=== PATIENT | female | born 1965 | race Caucasian/White ===

== ENCOUNTER → 2022-03-13 | Outpatient (CLI) | payer MEDICAID ==
[2022-03-13 16:28] LABS: C REACTIVE PROTEIN QUANTITATIV 7.98 MG/DL (0.00-0.30); URIC ACID 4.1 MG/DL (2.6-6.0)
== END ==
LOC: M PLALAB 12:13
PROVIDERS: ATTEND Physician Assistant
DX: M06.9 Rheumatoid arthritis, unspecified (principal)

== ENCOUNTER → 2022-05-12 | Outpatient (CLI) | payer MEDICAID, OTHER ==
[~2022-05-12] MED LIST: AMLO1TAB24; FLUO40CA; FURO40TA2; LORA1TAB4; PRED20TA; PROC10TA5; TRAM50TA2
== END ==
LOC: M PLARAD 13:50
PROVIDERS: ATTEND Internal Medicine Hematology & Oncology
DX: C77.8 Secondary and unspecified malignant neoplasm of lymph nodes of multiple regions (principal)

== ENCOUNTER → 2022-06-18 | Outpatient (CLI) | payer OTHER | LOC: M ONCR 13:35 | PROVIDERS: ATTEND Radiology Radiation Oncology | DX: C43.59 Malignant melanoma of other part of trunk (principal); C79.51 Secondary malignant neoplasm of bone; E78.5 Hyperlipidemia, unspecified; I10 Essential (primary) hypertension; J44.9 Chronic obstructive pulmonary disease, unspecified; K21.9 Gastro-esophageal reflux disease without esophagitis; M06.9 Rheumatoid arthritis, unspecified; Z79.52 Long term (current) use of systemic steroids; Z79.891 Long term (current) use of opiate analgesic; Z79.899 Other long term (current) drug therapy; Z88.8 Allergy status to other drugs, medicaments and biological substances ==

== ENCOUNTER 2022-07-01 14:06 | Outpatient (RCR) | payer OTHER ==
[2022-07-01] MEDS ORDERED: METR0.7526 TOP (14:48)
== END 2022-07-08 ==
LOC: M ONCR 14:06
PROVIDERS: ATTEND General Practice
DX: C43.9 Malignant melanoma of skin, unspecified (principal)

== ENCOUNTER 2022-08-31 19:08 | Inpatient (IN) | payer MEDICAID, OTHER ==
[~2022-08-31] VITALS: Ht 157.5 cm; Wt 80.0 kg
[~2022-08-31 19:08] MED LIST changes: +METR0.7526 TOP
[2022-08-31] MEDS ORDERED: NS 1,000 ML IV ONE (19:40)
[2022-08-31 20:05] LABS: BASO % 0.4 % (0.0-1.0); EOS % 0.4 % (0.0-3.0); HEMATOCRIT 32.8 % (36.0-47.0); HEMOGLOBIN 10.3 g/dl (12.0-15.5); LYMPH # 0.9 10^3/uL (1.5-5.0); LYMPH % 10.3 % (24.0-44.0); MEAN CORPUSCULAR HEMOGLOBIN 28.2 pg (27.0-33.0); MEAN CORPUSCULAR HGB CONC 31.4 g/dl (32.0-36.5); MEAN CORPUSCULAR VOLUME 89.9 fl (80.0-96.0); MONO # 0.6 10^3/uL (0.0-0.8); MONO % 6.5 % (2.0-8.0); NEUTROPHILS # 6.8 10^3/uL (1.5-8.5); NEUTROPHILS % 81.1 % (36.0-66.0); PLATELET COUNT, AUTOMATED 242 10^3/uL (150-450); RED BLOOD COUNT 3.65 10^6/uL (4.00-5.40); WHITE BLOOD COUNT 8.4 10^3/uL (4.0-10.0)
[2022-08-31] MEDS ORDERED: ISOVUE-370 76% 100ML VIAL As Ordered ONE (20:16)
[2022-08-31 20:26] LABS: LIPASE 34 U/L (12-53)
[2022-08-31 20:27] LABS: ALBUMIN 1.8 G/DL (3.2-5.2); ALKALINE PHOSPHATASE 870 U/L (46-116); ALT/SGPT 29 U/L (7.0-40); AST/SGOT 85 U/L (<34); BILIRUBIN,DIRECT 0.5 MG/DL (<0.4); BILIRUBIN,TOTAL 0.8 MG/DL (0.3-1.2); TOTAL PROTEIN 4.7 G/DL (5.7-8.2)
[2022-08-31] MEDS ORDERED: PIPERACILLIN/TAZOBACTAM SOD 3.375 GM in D5W MINI-BAG PLUS 50 ML IV ONE (20:35)
[2022-08-31 20:41] LABS: RSV AMPLIFICATION NEGATIVE (NEGATIVE)
[2022-08-31 20:47] LABS: CK-MB VALUE MASS < 1.0 NG/ML (<3.6)
[2022-08-31 20:49] LABS: CPK CREATINE PHOSPHOKINASE < 15 U/L (34-145)
[2022-08-31] MEDS ORDERED: MORPHINE 2 MG/ML 1ML VIAL IV ONE (21:05)
[2022-08-31] MEDS ORDERED: PROC10TA5 PO (22:15)
[2022-08-31] MEDS ORDERED: HOME MED LIST COMPLETE! XX SCH (22:20)
[2022-08-31] MEDS ORDERED: NS 500 ML IV ONE (23:45)
[2022-08-31] MEDS ORDERED: NORCO, ANEXSIA 5/325MG TABLET (HYDROcodone/ACETAMINOPHEN) PO PRN (23:45)
[2022-08-31] MEDS ORDERED: ACETAMINOPHEN TAB 650MG DOSE (2X325MG) PO PRN (23:45)
[2022-09-01] MEDS ORDERED: ALBUTEROL SULFATE 2.5MG/0.5ML INH NEB SOLN NEB PRN (01:25)
[2022-09-01] MEDS ORDERED: amLODIPine 5 MG TAB PO ONE (02:00)
[2022-09-01 05:15] VITALS: BP 136/89
[2022-09-01] MEDS ORDERED: HEPARIN SOD (PORCINE) 5000UNITS/ML 1ML VIAL/SYRINGE SC SCH (06:00)
[2022-09-01 06:49] LABS: ALBUMIN 1.8 G/DL (3.2-5.2); ALKALINE PHOSPHATASE 845 U/L (46-116); ALT/SGPT 27 U/L (7.0-40); AST/SGOT 70 U/L (<34); BLOOD UREA NITROGEN 15 MG/DL (9-23); CALCIUM LEVEL 7.5 MG/DL (8.5-10.1); CARBON DIOXIDE LEVEL 22 MMOL/L (20-31); CHLORIDE LEVEL 103 MMOL/L (98-107); CREATININE FOR GFR 0.39 MG/DL (0.55-1.30); GLOMERULAR FILTRATION RATE > 60.0 (>51); GLUCOSE, FASTING 103 MG/DL (60-100); POTASSIUM SERUM 3.6 MMOL/L (3.5-5.1); SODIUM LEVEL 133 MMOL/L (136-145); TOTAL PROTEIN 4.7 G/DL (5.7-8.2)
[2022-09-01] MEDS ORDERED: cefTRIAXone SOD 1 GM in D5W MINI-BAG PLUS 50 ML IV SCH (08:00)
[2022-09-01] MEDS: NS 1,000 ML IV SCH ×2 (08:42→17:56)
[2022-09-01] MEDS ORDERED: FLUBLOK(EGG FREE)(QUAD)INFLUENZA VACC 0.5ML SYRINGE 18YRS & OLDER IM.IMMUN ONE (09:00)
[2022-09-01] MEDS: amLODIPine 5 MG TAB PO SCH (13:02)
[2022-09-01] MEDS: ENOXAPARIN 40MG/0.4ML SYRINGE (J1650 PER 10MG) SC SCH (13:03)
[2022-09-01 14:00] VITALS: BP 126/92
[2022-09-01] MEDS ORDERED: VANCOMYCIN HCL 1,000 MG, VIAL MATE ADAPTER 1 EACH in NS 250 ML IV SCH (15:15)
[2022-09-01] MEDS ORDERED: VANCOMYCIN HCL 500 MG in D5W MINI-BAG PLUS 100 ML IV ONE ×2 (16:00→17:00)
[2022-09-01] MEDS: VANCOMYCIN HCL 1,000 MG, VIAL MATE ADAPTER 1 EACH in D5W 250 ML IV SCH (16:04)
[2022-09-01] MEDS ORDERED: VANCOMYCIN HCL 750 MG, VIAL MATE ADAPTER 1 EACH in D5W 250 ML IV ONE (17:00)
[2022-09-01] MEDS: PIPERACILLIN/TAZOBACTAM SOD 3.375 GM in D5W MINI-BAG PLUS 50 ML IV SCH (20:09)
[2022-09-01] MEDS ORDERED: NS 500 ML IV ONE (22:50)
[2022-09-02 00:26] VITALS: BP 128/91
[2022-09-02] MEDS: VANCOMYCIN HCL 1,000 MG, VIAL MATE ADAPTER 1 EACH in D5W 250 ML IV SCH ×2 (00:53→14:54)
[2022-09-02] MEDS: PIPERACILLIN/TAZOBACTAM SOD 3.375 GM in D5W MINI-BAG PLUS 50 ML IV SCH ×4 (02:42→20:14)
[2022-09-02 04:54] LABS: HEMATOCRIT 31.1 % (36.0-47.0); HEMOGLOBIN 9.7 g/dl (12.0-15.5); MEAN CORPUSCULAR HEMOGLOBIN 28.4 pg (27.0-33.0); MEAN CORPUSCULAR HGB CONC 31.2 g/dl (32.0-36.5); MEAN CORPUSCULAR VOLUME 91.2 fl (80.0-96.0); PLATELET COUNT, AUTOMATED 222 10^3/uL (150-450); RED BLOOD COUNT 3.41 10^6/uL (4.00-5.40); WHITE BLOOD COUNT 8.5 10^3/uL (4.0-10.0)
[2022-09-02] MEDS: NS 1,000 ML IV SCH ×2 (05:06→13:39)
[2022-09-02 05:18] LABS: BLOOD UREA NITROGEN 12 MG/DL (9-23); CALCIUM LEVEL 6.7 MG/DL (8.5-10.1); CARBON DIOXIDE LEVEL 22 MMOL/L (20-31); CHLORIDE LEVEL 104 MMOL/L (98-107); CREATININE FOR GFR 0.38 MG/DL (0.55-1.30); GLOMERULAR FILTRATION RATE > 60.0 (>51); GLUCOSE, FASTING 79 MG/DL (60-100); POTASSIUM SERUM 3.6 MMOL/L (3.5-5.1); SODIUM LEVEL 135 MMOL/L (136-145)
[2022-09-02 05:59] VITALS: BP 159/91
[2022-09-02] MEDS: amLODIPine 5 MG TAB PO SCH (09:27)
[2022-09-02] MEDS: ENOXAPARIN 40MG/0.4ML SYRINGE (J1650 PER 10MG) SC SCH (09:27)
[2022-09-02] MEDS ORDERED: VANCOMYCIN HCL 1,000 MG, VIAL MATE ADAPTER 1 EACH in D5W 250 ML IV SCH (13:00)
[2022-09-02 13:15] LABS: VANCOMYCIN LEVEL TROUGH 16.8 UG/ML (10.0-20.0)
[2022-09-02 14:00] VITALS: BP 140/89
[2022-09-02] MEDS: ONDANSETRON 4MG ORAL DISINTEGRATING TAB PO PRN (14:54)
[2022-09-02 15:22] LABS: C REACTIVE PROTEIN QUANTITATIV 12.9 MG/DL (<1.0)
[2022-09-02 22:28] VITALS: BP 137/90
[2022-09-03] MEDS: VANCOMYCIN HCL 1,000 MG, VIAL MATE ADAPTER 1 EACH in D5W 250 ML IV SCH (01:24)
[2022-09-03 06:57] VITALS: BP 133/85
[2022-09-03 07:22] LABS: BASO # 0.1 10^3/uL (0.0-0.2); BASO % 0.7 % (0.0-1.0); EOS # 0.1 10^3/uL (0.0-0.5); EOS % 0.8 % (0.0-3.0); HEMOGLOBIN 9.9 g/dl (12.0-15.5); LYMPH # 0.9 10^3/uL (1.5-5.0); LYMPH % 10.4 % (24.0-44.0); MEAN CORPUSCULAR HEMOGLOBIN 28.9 pg (27.0-33.0); MEAN CORPUSCULAR HGB CONC 31.9 g/dl (32.0-36.5); MEAN CORPUSCULAR VOLUME 90.6 fl (80.0-96.0); MONO # 0.7 10^3/uL (0.0-0.8); MONO % 8.5 % (2.0-8.0); NEUTROPHILS # 6.5 10^3/uL (1.5-8.5); NEUTROPHILS % 77.5 % (36.0-66.0); PLATELET COUNT, AUTOMATED 212 10^3/uL (150-450); RED BLOOD COUNT 3.42 10^6/uL (4.00-5.40); WHITE BLOOD COUNT 8.4 10^3/uL (4.0-10.0)
[2022-09-03 07:44] LABS: ALBUMIN 1.6 G/DL (3.2-5.2); ALKALINE PHOSPHATASE 979 U/L (46-116); ALT/SGPT 31 U/L (7.0-40); AST/SGOT 74 U/L (<34); BLOOD UREA NITROGEN 14 MG/DL (9-23); CALCIUM LEVEL 7.1 MG/DL (8.5-10.1); CARBON DIOXIDE LEVEL 21 MMOL/L (20-31); CHLORIDE LEVEL 102 MMOL/L (98-107); CREATININE FOR GFR 0.38 MG/DL (0.55-1.30); GLOMERULAR FILTRATION RATE > 60.0 (>51); GLUCOSE, FASTING 69 MG/DL (60-100); MAGNESIUM LEVEL 1.6 MG/DL (1.8-2.4); POTASSIUM SERUM 3.8 MMOL/L (3.5-5.1); SODIUM LEVEL 134 MMOL/L (136-145); TOTAL PROTEIN 4.5 G/DL (5.7-8.2)
[2022-09-03] MEDS ORDERED: MAGNESIUM OXIDE 400MG TAB (MAG-OX) PO ONE (07:50)
[2022-09-03] MEDS: ENOXAPARIN 40MG/0.4ML SYRINGE (J1650 PER 10MG) SC SCH (08:51)
[2022-09-03] MEDS: amLODIPine 5 MG TAB PO SCH (08:52)
[2022-09-03 14:00] VITALS: BP 139/95
[2022-09-03] MEDS: VANCOMYCIN HCL 750 MG, VIAL MATE ADAPTER 1 EACH in D5W 250 ML IV SCH (14:07)
[2022-09-03] MEDS: ONDANSETRON 4MG ORAL DISINTEGRATING TAB PO PRN ×2 (14:12→23:10)
[2022-09-03 22:12] VITALS: BP 120/79
[2022-09-04] MEDS: VANCOMYCIN HCL 750 MG, VIAL MATE ADAPTER 1 EACH in D5W 250 ML IV SCH (02:20)
[2022-09-04 05:59] VITALS: BP 117/77
[2022-09-04 06:21] LABS: BASO # 0.1 10^3/uL (0.0-0.2); BASO % 0.7 % (0.0-1.0); EOS # 0.1 10^3/uL (0.0-0.5); EOS % 0.8 % (0.0-3.0); HEMATOCRIT 32.3 % (36.0-47.0); HEMOGLOBIN 10.2 g/dl (12.0-15.5); LYMPH % 10.8 % (24.0-44.0); MEAN CORPUSCULAR HEMOGLOBIN 28.8 pg (27.0-33.0); MEAN CORPUSCULAR HGB CONC 31.6 g/dl (32.0-36.5); MEAN CORPUSCULAR VOLUME 91.2 fl (80.0-96.0); MONO # 0.8 10^3/uL (0.0-0.8); MONO % 8.4 % (2.0-8.0); NEUTROPHILS # 6.9 10^3/uL (1.5-8.5); NEUTROPHILS % 77.1 % (36.0-66.0); PLATELET COUNT, AUTOMATED 247 10^3/uL (150-450); RED BLOOD COUNT 3.54 10^6/uL (4.00-5.40); WHITE BLOOD COUNT 8.9 10^3/uL (4.0-10.0)
[2022-09-04 07:21] LABS: ALBUMIN 1.6 G/DL (3.2-5.2); ALKALINE PHOSPHATASE 1161 U/L (46-116); ALT/SGPT 40 U/L (7.0-40); AST/SGOT 93 U/L (<34); BLOOD UREA NITROGEN 16 MG/DL (9-23); CALCIUM LEVEL 7.9 MG/DL (8.5-10.1); CARBON DIOXIDE LEVEL 22 MMOL/L (20-31); CHLORIDE LEVEL 103 MMOL/L (98-107); CREATININE FOR GFR 0.42 MG/DL (0.55-1.30); GLOMERULAR FILTRATION RATE > 60.0 (>51); GLUCOSE, FASTING 93 MG/DL (60-100); MAGNESIUM LEVEL 1.9 MG/DL (1.8-2.4); POTASSIUM SERUM 4.2 MMOL/L (3.5-5.1); SODIUM LEVEL 134 MMOL/L (136-145); TOTAL PROTEIN 4.6 G/DL (5.7-8.2)
[2022-09-04] MEDS: amLODIPine 5 MG TAB PO SCH (08:30)
[2022-09-04] MEDS: ENOXAPARIN 40MG/0.4ML SYRINGE (J1650 PER 10MG) SC SCH (08:30)
[2022-09-04 08:40] LABS: HEPATITIS B SURFACE ANTIGEN NEGATIVE (NEGATIVE)
[2022-09-04 09:00] LABS: HEPATITIS B CORE ANTIBODY IGM NEGATIVE (NEGATIVE)
[2022-09-04 09:01] LABS: HEPATITIS C VIRUS ABY INDEX 0.1 INDEX (<0.8)
[2022-09-04] MEDS ORDERED: VANCOMYCIN HCL 750 MG, VIAL MATE ADAPTER 1 EACH in D5W 250 ML IV SCH ×2 (14:00→15:00)
[2022-09-04 14:16] VITALS: BP 143/86
[2022-09-04] MEDS: ONDANSETRON 4MG ORAL DISINTEGRATING TAB PO PRN (18:33)
[2022-09-04 20:05] VITALS: BP 141/87
[2022-09-05 05:45] VITALS: BP 102/72
[2022-09-05 06:59] LABS: BASO # 0.1 10^3/uL (0.0-0.2); BASO % 0.6 % (0.0-1.0); EOS # 0.1 10^3/uL (0.0-0.5); EOS % 0.7 % (0.0-3.0); HEMATOCRIT 30.4 % (36.0-47.0); HEMOGLOBIN 9.7 g/dl (12.0-15.5); LYMPH # 0.8 10^3/uL (1.5-5.0); LYMPH % 9.7 % (24.0-44.0); MEAN CORPUSCULAR HEMOGLOBIN 29.1 pg (27.0-33.0); MEAN CORPUSCULAR HGB CONC 31.9 g/dl (32.0-36.5); MEAN CORPUSCULAR VOLUME 91.3 fl (80.0-96.0); MONO # 0.7 10^3/uL (0.0-0.8); NEUTROPHILS # 6.9 10^3/uL (1.5-8.5); NEUTROPHILS % 78.7 % (36.0-66.0); PLATELET COUNT, AUTOMATED 240 10^3/uL (150-450); RED BLOOD COUNT 3.33 10^6/uL (4.00-5.40); WHITE BLOOD COUNT 8.7 10^3/uL (4.0-10.0)
[2022-09-05 07:46] LABS: ALBUMIN 1.6 G/DL (3.2-5.2); ALKALINE PHOSPHATASE 1155 U/L (46-116); ALT/SGPT 43 U/L (7.0-40); AST/SGOT 98 U/L (<34); BLOOD UREA NITROGEN 16 MG/DL (9-23); CALCIUM LEVEL 7.6 MG/DL (8.5-10.1); CARBON DIOXIDE LEVEL 20 MMOL/L (20-31); CHLORIDE LEVEL 104 MMOL/L (98-107); CREATININE FOR GFR 0.41 MG/DL (0.55-1.30); GLOMERULAR FILTRATION RATE > 60.0 (>51); GLUCOSE, FASTING 80 MG/DL (60-100); MAGNESIUM LEVEL 1.8 MG/DL (1.8-2.4); SODIUM LEVEL 132 MMOL/L (136-145); TOTAL PROTEIN 4.6 G/DL (5.7-8.2)
[2022-09-05 08:07] LABS: THYROXINE (T4) 4.5 UG/DL (4.5-10.9)
[2022-09-05 08:08] LABS: THYROID STIMULATING HORMONE 6.129 uIU/ML (0.55-4.78)
[2022-09-05] MEDS: ENOXAPARIN 40MG/0.4ML SYRINGE (J1650 PER 10MG) SC SCH (08:45)
[2022-09-05] MEDS: amLODIPine 5 MG TAB PO SCH (08:45)
[2022-09-05] MEDS ORDERED: ONDA4TAB6 PO (09:49)
[2022-09-05] MEDS ORDERED: AMLO1TAB24 PO (09:49)
[2022-09-05 18:00] VITALS: BP 136/82
[2022-09-05] MEDS ORDERED: **hydrALAZINE** 10 MG TAB PO PRN (18:00)
[2022-09-05] MEDS: NS 1,000 ML IV SCH (18:52)
[2022-09-05 20:00] VITALS: BP 135/83
[2022-09-05] MEDS ORDERED: ONDANSETRON 4MG TAB PO PRN (20:00)
[2022-09-05] MEDS: ONDANSETRON 4MG ORAL DISINTEGRATING TAB PO PRN (21:11)
[2022-09-05] MEDS ORDERED: ACETAMINOPHEN TAB 650MG DOSE (2X325MG) PO PRN (23:50)
[2022-09-06 06:00] VITALS: BP 127/80
[2022-09-06] MEDS: ENOXAPARIN 40MG/0.4ML SYRINGE (J1650 PER 10MG) SC SCH (08:35)
[2022-09-06] MEDS: METOPROLOL TART 12.5 MG PER 1/2 TAB PO SCH ×2 (08:35→21:39)
[2022-09-06] MEDS ORDERED: amLODIPine 5 MG TAB PO SCH (09:00)
[2022-09-06 12:03] VITALS: BP 113/76
[2022-09-06 14:00] VITALS: BP 115/75
[2022-09-06] MEDS: NS 1,000 ML IV SCH (14:05)
[2022-09-06] MEDS: NORCO, ANEXSIA 5/325MG TABLET (HYDROcodone/ACETAMINOPHEN) PO PRN ×2 (16:35)
[2022-09-06 20:00] VITALS: BP 121/79
[2022-09-07 06:00] VITALS: BP 116/79
[2022-09-07] MEDS: ONDANSETRON 4MG ORAL DISINTEGRATING TAB PO PRN (08:09)
[2022-09-07] MEDS: METOPROLOL TART 12.5 MG PER 1/2 TAB PO SCH ×2 (09:22→20:39)
[2022-09-07] MEDS: NS 1,000 ML IV SCH (09:23)
[2022-09-07] MEDS: ENOXAPARIN 40MG/0.4ML SYRINGE (J1650 PER 10MG) SC SCH (09:23)
[2022-09-07 20:00] VITALS: BP 101/64
[2022-09-07] MEDS: NORCO, ANEXSIA 5/325MG TABLET (HYDROcodone/ACETAMINOPHEN) PO PRN (20:38)
[2022-09-08 05:22] VITALS: BP 109/71
[2022-09-08] MEDS: ONDANSETRON 4MG ORAL DISINTEGRATING TAB PO PRN ×3 (06:20→20:41)
[2022-09-08] MEDS: ENOXAPARIN 40MG/0.4ML SYRINGE (J1650 PER 10MG) SC SCH (08:25)
[2022-09-08] MEDS: METOPROLOL TART 12.5 MG PER 1/2 TAB PO SCH ×2 (08:25→20:27)
[2022-09-09 06:02] VITALS: BP 109/71
[2022-09-09] MEDS: METOPROLOL TART 12.5 MG PER 1/2 TAB PO SCH ×2 (08:08→20:00)
[2022-09-09] MEDS: ENOXAPARIN 40MG/0.4ML SYRINGE (J1650 PER 10MG) SC SCH (08:08)
[2022-09-09] MEDS: ONDANSETRON 4MG ORAL DISINTEGRATING TAB PO PRN ×2 (13:09→20:00)
[2022-09-10 05:26] VITALS: BP 119/76
[2022-09-10] MEDS: ENOXAPARIN 40MG/0.4ML SYRINGE (J1650 PER 10MG) SC SCH (08:07)
[2022-09-10] MEDS: METOPROLOL TART 12.5 MG PER 1/2 TAB PO SCH ×2 (08:07→20:24)
[2022-09-10] MEDS: NORCO, ANEXSIA 5/325MG TABLET (HYDROcodone/ACETAMINOPHEN) PO PRN (20:23)
[2022-09-10] MEDS: ONDANSETRON 4MG ORAL DISINTEGRATING TAB PO PRN (20:24)
[2022-09-11 06:00] VITALS: BP 119/76
[2022-09-11] MEDS: METOPROLOL TART 12.5 MG PER 1/2 TAB PO SCH ×2 (09:10→20:27)
[2022-09-11] MEDS: ENOXAPARIN 40MG/0.4ML SYRINGE (J1650 PER 10MG) SC SCH (09:10)
[2022-09-11] MEDS: ONDANSETRON 4MG ORAL DISINTEGRATING TAB PO PRN (16:15)
[2022-09-12 06:00] VITALS: BP 124/94
[2022-09-12] MEDS: METOPROLOL TART 12.5 MG PER 1/2 TAB PO SCH ×2 (08:17→20:38)
[2022-09-12] MEDS: ONDANSETRON 4MG ORAL DISINTEGRATING TAB PO PRN ×2 (08:17→21:22)
[2022-09-12] MEDS: ENOXAPARIN 40MG/0.4ML SYRINGE (J1650 PER 10MG) SC SCH (08:18)
[2022-09-12] MEDS: NORCO, ANEXSIA 5/325MG TABLET (HYDROcodone/ACETAMINOPHEN) PO PRN (14:20)
[2022-09-12 20:31] VITALS: BP 113/74
[2022-09-12] MEDS ORDERED: PROMETHAZINE 25 MG TAB PO ONE (23:20)
[2022-09-13] MEDS: ONDANSETRON 4MG ORAL DISINTEGRATING TAB PO PRN ×2 (05:32→21:24)
[2022-09-13 06:00] VITALS: BP 110/71
[2022-09-13] MEDS: ENOXAPARIN 40MG/0.4ML SYRINGE (J1650 PER 10MG) SC SCH (08:58)
[2022-09-13] MEDS: METOPROLOL TART 12.5 MG PER 1/2 TAB PO SCH ×2 (08:58→21:41)
[2022-09-13 18:53] LABS: BASO # 0.1 10^3/uL (0.0-0.2); BASO % 0.8 % (0.0-1.0); EOS % 0.2 % (0.0-3.0); HEMATOCRIT 31.6 % (36.0-47.0); HEMOGLOBIN 10.3 g/dl (12.0-15.5); LYMPH # 1.2 10^3/uL (1.5-5.0); LYMPH % 11.2 % (24.0-44.0); MEAN CORPUSCULAR HEMOGLOBIN 29.9 pg (27.0-33.0); MEAN CORPUSCULAR HGB CONC 32.6 g/dl (32.0-36.5); MEAN CORPUSCULAR VOLUME 91.6 fl (80.0-96.0); MONO # 0.7 10^3/uL (0.0-0.8); MONO % 6.2 % (2.0-8.0); NEUTROPHILS # 8.6 10^3/uL (1.5-8.5); NEUTROPHILS % 78.9 % (36.0-66.0); PLATELET COUNT, AUTOMATED 250 10^3/uL (150-450); RED BLOOD COUNT 3.45 10^6/uL (4.00-5.40); WHITE BLOOD COUNT 10.9 10^3/uL (4.0-10.0)
[2022-09-13 19:08] LABS: PLATELET CLUMPS SMALL AMT; PLATELET ESTIMATE NORMAL (NORMAL)
[2022-09-13 19:09] LABS: ANISOCYTOSIS 1+
[2022-09-13 19:27] LABS: ALBUMIN 1.5 G/DL (3.2-5.2); ALT/SGPT 48 U/L (7.0-40); AST/SGOT 117 U/L (<34); BILIRUBIN,DIRECT 0.8 MG/DL (<0.4); BILIRUBIN,TOTAL 1.2 MG/DL (0.3-1.2); BLOOD UREA NITROGEN 30 MG/DL (9-23); CALCIUM LEVEL 7.8 MG/DL (8.5-10.1); CARBON DIOXIDE LEVEL 18 MMOL/L (20-31); CHLORIDE LEVEL 100 MMOL/L (98-107); CREATININE FOR GFR 0.58 MG/DL (0.55-1.30); GLOMERULAR FILTRATION RATE > 60.0 (>51); GLUCOSE, FASTING 86 MG/DL (60-100); POTASSIUM SERUM 5.4 MMOL/L (3.5-5.1); SODIUM LEVEL 129 MMOL/L (136-145); TOTAL PROTEIN 4.7 G/DL (5.7-8.2)
[2022-09-13 19:33] LABS: ALKALINE PHOSPHATASE 1255 U/L (46-116)
[2022-09-13 21:06] VITALS: BP 125/75
[2022-09-13] MEDS: NORCO, ANEXSIA 5/325MG TABLET (HYDROcodone/ACETAMINOPHEN) PO PRN (21:42)
[2022-09-14 04:58] LABS: VENOUS BASE EXCESS -5.5 (-2.0-2.0); VENOUS HCO3 18.9 MEQ/L (23.0-27.0); VENOUS PARTIAL PRESSURE CO2 33.1 mmHg (38.0-50.0); VENOUS PARTIAL PRESSURE O2 139.9 mmHg (30.0-50.0); VENOUS PH 7.374 UNITS (7.330-7.430); VENOUS STANDARD HCO3 19.9 MEQ/L; VENOUS TOTAL CO2 19.9 MEQ/L (24.0-28.0)
[2022-09-14 05:03] LABS: BASO # 0.1 10^3/uL (0.0-0.2); BASO % 0.8 % (0.0-1.0); EOS % 0.1 % (0.0-3.0); HEMOGLOBIN 9.7 g/dl (12.0-15.5); LYMPH # 1.2 10^3/uL (1.5-5.0); MEAN CORPUSCULAR HEMOGLOBIN 29.8 pg (27.0-33.0); MEAN CORPUSCULAR HGB CONC 32.3 g/dl (32.0-36.5); MEAN CORPUSCULAR VOLUME 92.3 fl (80.0-96.0); MONO # 0.8 10^3/uL (0.0-0.8); MONO % 7.3 % (2.0-8.0); NEUTROPHILS # 8.4 10^3/uL (1.5-8.5); NEUTROPHILS % 77.6 % (36.0-66.0); PLATELET COUNT, AUTOMATED 242 10^3/uL (150-450); RED BLOOD COUNT 3.25 10^6/uL (4.00-5.40); WHITE BLOOD COUNT 10.9 10^3/uL (4.0-10.0)
[2022-09-14] MEDS: ONDANSETRON 4MG ORAL DISINTEGRATING TAB PO PRN (05:13)
[2022-09-14 05:52] LABS: BLOOD UREA NITROGEN 31 MG/DL (9-23); CALCIUM LEVEL 7.7 MG/DL (8.5-10.1); CARBON DIOXIDE LEVEL 19 MMOL/L (20-31); CHLORIDE LEVEL 102 MMOL/L (98-107); CREATININE FOR GFR 0.63 MG/DL (0.55-1.30); GLOMERULAR FILTRATION RATE > 60.0 (>51); GLUCOSE, FASTING 66 MG/DL (60-100); POTASSIUM SERUM 5.5 MMOL/L (3.5-5.1); SODIUM LEVEL 130 MMOL/L (136-145)
[2022-09-14 06:00] VITALS: BP 113/71
[2022-09-14] MEDS ORDERED: FOSFOMYCIN TROMETHAMINE 3 GM POWDER PACKET (MONUROL) PO ONE (06:00)
[2022-09-14] MEDS ORDERED: PATIROMER SORBITEX CALCIUM 8.4 GM POWDER PACKET (VELTASSA) PO ONE (07:00)
[2022-09-14] MEDS: ENOXAPARIN 40MG/0.4ML SYRINGE (J1650 PER 10MG) SC SCH (08:06)
[2022-09-14] MEDS: LACTULOSE 20GM/30ML SYRUP UDC PO SCH ×3 (08:06→14:21)
[2022-09-14 08:07] VITALS: BP 115/73
[2022-09-14] MEDS: METOPROLOL TART 12.5 MG PER 1/2 TAB PO SCH (08:07)
[2022-09-14 11:50] LABS: BLOOD UREA NITROGEN 31 MG/DL (9-23); CALCIUM LEVEL 7.6 MG/DL (8.5-10.1); CARBON DIOXIDE LEVEL 19 MMOL/L (20-31); CHLORIDE LEVEL 101 MMOL/L (98-107); GLOMERULAR FILTRATION RATE > 60.0 (>51); GLUCOSE, FASTING 86 MG/DL (60-100); POTASSIUM SERUM 4.9 MMOL/L (3.5-5.1); SODIUM LEVEL 129 MMOL/L (136-145)
[2022-09-14] MEDS ORDERED: LORazepam 2 MG/ML 1ML VIAL IV PRN (14:40)
[2022-09-14] MEDS ORDERED: SCOPOLAMINE 1MG TRANSDERMAL PATCH TOP PRN (14:40)
[2022-09-14] MEDS: MORPHINE 10MG/0.5ML ORAL CONCENTRATE SOLUTION U/D SL PRN (16:19)
[2022-09-15] MEDS: ONDANSETRON 4MG ORAL DISINTEGRATING TAB PO PRN ×2 (18:00→22:03)
[2022-09-16] MEDS: ONDANSETRON 4MG ORAL DISINTEGRATING TAB PO PRN ×2 (10:31→15:56)
[2022-09-17] MEDS: ONDANSETRON 4MG ORAL DISINTEGRATING TAB PO PRN (08:16)
[2022-09-17] MEDS: PROMETHAZINE 25 MG TAB PO PRN ×2 (13:42→20:34)
[2022-09-17] MEDS: NORCO, ANEXSIA 5/325MG TABLET (HYDROcodone/ACETAMINOPHEN) PO PRN ×2 (13:45→20:34)
[2022-09-18] MEDS: PROMETHAZINE 25 MG TAB PO PRN ×3 (02:42→15:28)
[2022-09-18] MEDS: NORCO, ANEXSIA 5/325MG TABLET (HYDROcodone/ACETAMINOPHEN) PO PRN (02:43)
[2022-09-18] MEDS: MORPHINE 10MG/0.5ML ORAL CONCENTRATE SOLUTION U/D SL PRN ×5 (05:32→21:53)
[2022-09-18] MEDS: ONDANSETRON 4MG ORAL DISINTEGRATING TAB PO PRN ×2 (06:37→14:21)
[2022-09-18] MEDS ORDERED: LORazepam 1 MG TAB PO PRN (14:35)
== END 2022-09-18 23:21 | disposition expired | DRG 381 ==
LOC: M ED 19:08 → M ED INP 23:41 → ENRESERV 09-01 04:41 → M MS5PR 09-01 05:05 → UNDODISIN 09-05 12:50 → M MSPAV 09-05 17:59
PROVIDERS: ADMIT Internal Medicine; ATTEND Student in an Organized Health Care Education/Training Program
PROC: B246ZZZ Ultrasonography of Right and Left Heart (ICD-10-PCS; principal; 2022-09-04)
DX: C43.59 Malignant melanoma of other part of trunk (principal); G93.41 Metabolic encephalopathy; I96 Gangrene, not elsewhere classified; N17.9 Acute kidney failure, unspecified; E46 Unspecified protein-calorie malnutrition; I11.0 Hypertensive heart disease with heart failure; C77.3 Secondary and unspecified malignant neoplasm of axilla and upper limb lymph nodes; I50.32 Chronic diastolic (congestive) heart failure; C77.9 Secondary and unspecified malignant neoplasm of lymph node, unspecified; R78.81 Bacteremia; C77.5 Secondary and unspecified malignant neoplasm of intrapelvic lymph nodes; C78.00 Secondary malignant neoplasm of unspecified lung; C79.51 Secondary malignant neoplasm of bone; C78.7 Secondary malignant neoplasm of liver and intrahepatic bile duct; C78.6 Secondary malignant neoplasm of retroperitoneum and peritoneum; E87.20 Acidosis, unspecified; R18.8 Other ascites; M86.8X7 Other osteomyelitis, ankle and foot; E87.1 Hypo-osmolality and hyponatremia; E87.5 Hyperkalemia; K76.82 Hepatic encephalopathy; K72.90 Hepatic failure, unspecified without coma; K74.60 Unspecified cirrhosis of liver; G89.3 Neoplasm related pain (acute) (chronic); Z51.5 Encounter for palliative care; Z66 Do not resuscitate; M06.9 Rheumatoid arthritis, unspecified; J44.9 Chronic obstructive pulmonary disease, unspecified; K21.9 Gastro-esophageal reflux disease without esophagitis; F41.9 Anxiety disorder, unspecified; F32.A Depression, unspecified; R73.03 Prediabetes; N39.0 Urinary tract infection, site not specified; R74.01 Elevation of levels of liver transaminase levels; R00.0 Tachycardia, unspecified; B95.61 Methicillin susceptible Staphylococcus aureus infection as the cause of diseases classified elsewhere; E78.5 Hyperlipidemia, unspecified; L02.31 Cutaneous abscess of buttock; B96.1 Klebsiella pneumoniae [K. pneumoniae] as the cause of diseases classified elsewhere; Z79.899 Other long term (current) drug therapy; Z87.891 Personal history of nicotine dependence; Z88.8 Allergy status to other drugs, medicaments and biological substances

== ENCOUNTER 2022-09-05 13:00 | Outpatient (CLI) | payer MEDICAID, OTHER ==
[~2022-09-05] VITALS: Ht 157.5 cm; Wt 80.0 kg
[2022-09-05 13:00] VITALS: BP_SYST 112; BP_SYST 135; BP_DIAS 54; BP_DIAS 69
[~2022-09-05 13:00] MED LIST changes: +AMLO1TAB24 PO; +ONDA4TAB6 PO; +PROC10TA5 PO
[2022-09-05] MEDS ORDERED: DALBAVANCIN 1,500 MG in D5W 250 ML IV ONE (14:00)
[2022-09-05 14:26] VITALS: BP 118/67
[2022-09-05 15:00] VITALS: BP 105/70
[2022-09-05 17:00] VITALS: BP 179/99
[2022-09-05 17:25] VITALS: BP 171/95
[2022-09-05] MEDS ORDERED: ONDANSETRON 4MG ORAL DISINTEGRATING TAB SL ONE (17:35)
[2022-09-05 18:00] VITALS: BP 119/76
== END 2022-09-05 18:00 | disposition home or self-care (01) ==
LOC: M INFU 13:00
PROVIDERS: ATTEND Family Medicine
DX: R78.81 Bacteremia (principal); Z88.8 Allergy status to other drugs, medicaments and biological substances
CPT/HCPCS: 96365; J0875

== ENCOUNTER 2022-09-15 08:30 | Outpatient (RCR) | payer MEDICAID ==
[~2022-09-15 08:30] MED LIST changes: +LORA1TAB23; -LORA1TAB4
== END 2022-09-18 ==
LOC: M ONCR 08:30
PROVIDERS: ATTEND General Practice
DX: C43.9 Malignant melanoma of skin, unspecified (principal)